=== PATIENT | male | born 1990 | race African-American/Black ===

== ENCOUNTER 2020-02-16 07:08 | Emergency (ER) | payer MEDICAID, SELFPAY ==
[2020-02-16 07:10] VITALS: BP 148/93; PULSE 60; RESP 16; TEMP 36.8; O2SAT 98; BMI 31.0
[2020-02-16 07:36] LABS: Appearance,Urine CLEAR (Clear); Bilirubin,Urine Negative (Negative); Blood, Urine Negative (Negative); Color,Urine YELLOW (Yellow); Glucose,Urine (UA) Negative (Negative); Ketones,Urine Negative (Negative); Leukocyte Esterase,Urine Negative (Negative); Microscopic, Urine URINE MICROSCOPIC (MICROSCOPIC); Nitrate,Urine Negative (Negative); Protein,Urine Negative (Negative); Specific Gravity, Urine 1.025 (1.005-1.030)
--- NOTE | 2020-02-16 07:36 | HMH.EDNVD ---
ED Disposition Clinical Impression: Acute viral syndrome Disposition: Home, Self-Care Condition on Discharge: Good Instructions: DI for Nausea -- Adult Additional Instructions: fluids and see pcp for follow up - check on covid-19 testing today Prescriptions: ondansetron HCL [Zofran 4mg Tab] 4 mg PO Q8H #15 tab Prescription Printed Referrals: PCP,No [Primary Care Provider] - - Critical Care Critical Care Time: No Attestation: On 02/16/20, the high probability of a clinically significant, sudden or life threatening deterioration of the following system(s) required my full and direct attention, intervention and personal management. The time I documented below is in addition to time spent performing reported procedures but includes the following listed in this critical care notation. Medical Decision Making - Medical Records Medical records reviewed: Yes: I reviewed the patient's medical records. - Vinod Inquiry Pt receiving controlled substance: No Vital Signs: 02/16/20 07:10 Temperature 98.3 F Temperature Source Oral Pulse Rate [Left Radial] 60 Respiratory Rate 16 Blood Pressure [Right Arm] 148/93 H Blood Pressure Mean [Right Arm] 111 Blood Pressure Position [Right Arm] Sitting 02 Sat by Pulse Oximetry 98 Oxygen Delivery Method Room Air - Lab Data Lab results reviewed: Yes: I reviewed the patient's lab results. Lab Results 02/16/20 07:28: Urine Color Yellow, Urine Appearance Clear, Urine pH 6.0, Ur Specific [place] 1.025, Urine Protein Negative, Urine Glucose (UA) Negative, Urine Ketones Negative, Urine Blood Negative, Urine Nitrate Negative, Urine Bilirubin Negative, Urine Urobilinogen 1.0, Ur Leukocyte Esterase Negative, Urine RBC None, Urine WBC 3-5, Ur Squamous Epith Cells Occasional, Urine Bacteria Trace, Coarse Granular Casts Occasional 02/16/20 07:28: WBC 9.3, RBC 5.44, Hgb 16.4, Hct 47.3, MCV 87.0, MCH 30.1, MCHC 34.7, RDW 13.5, Plt Count 298, MPV 7.4, Neut % (Auto) 64.4, Lymph % (Auto) 27.7, [place] % (Auto) 5.8, Eos % (Auto) 1.7, Baso % (Auto) 0.5, Neut # (Auto) 6.0, Lymph # (Auto) 2.6, [place] # (Auto) 0.5, Eos # (Auto) 0.2, Baso # (Auto) 0.1 02/16/20 07:28: Sodium 139, Potassium 4.5, Chloride 107, Carbon Dioxide 23, Anion Gap 13.5, BUN 12, Creatinine 0.90, Estimated Creat Clear 166, Estimated GFR 101, Est GFR ( Amer) 122, Glucose 110 H, Calcium 9.2, Total Bilirubin 0.7, AST 36, ALT 63, Alkaline Phosphatase 61, Total Protein 7.4, Albumin 4.2, Globulin 3.2, Albumin/Globulin Ratio 1.3 Result diagrams: 02/16/20 07:28 02/16/20 07:28 Orders (Tests/Meds): ED MEDICATIONS Generic Name Dose Route Start Last Admin Trade Name Freq PRN Reason Stop Dose Admin Sodium Chloride 1,000 mls @ 999 mls/hr 02/16/20 07:30 02/16/20 07:32 Sod Chlor 0.9% 1000ml Bag IV 02/16/20 08:30 999 mls/hr .Q1H1M SAYDA Administration Discontinued Medications Generic Name Dose Route Start Last Admin Trade Name Freq PRN Reason Stop Dose Admin Ondansetron HCl 4 mg 02/16/20 07:29 02/16/20 07:32 Zofran 4mg/2ml Vial IV 02/16/20 07:30 4 mg ONCE ONE Administration ORDERS Category Date Time Status COVID [Coronavirus 19 Swab (OUTPT)] Routine Lab 02/16/20 07:45 Ordered Nausea/Vomiting/Diarrhea HPI - General Chief complaint: Nausea/Vomiting/Diarrhea Stated complaint: nausa negrete Time Seen by Provider: 02/16/20 07:30 Mode of Arrival: Ambulatory Source of Information: Patient, Medical Record Limitations: No Limitations Description of Symptoms (Recalled from ER Triage Doc. by RN): to ed per pvt car with c/o nausea starting yesterday states woke up this am with headache and continues with nausea. pt denies any vomiting, fever, chills, abd pain, diarrhea or sick contacts. - History of Present Illness HPI Narrative: pt with nausea w/o vomiting which started yesterday with no fever and no diarrhea or rash and no jt pain -no tick bite or change in taste or smell- today with rt sided negrete withou
[2020-02-16 07:40] LABS: Basophils # 0.1 K/mm3 (0-0.2); Basophils % 0.5 % (0.1-2.0); Chloride 107 mmol/L (98-107); Eosinophils # 0.2 K/mm3 (0.0-0.4); Eosinophils % 1.7 % (0.1-12.0); Hematocrit 47.3 % (42.0-52.0); Hemoglobin 16.4 g/dL (14.1-18.0); Lymphocytes # 2.6 K/mm3 (0.7-4.5); Lymphocytes % 27.7 % (10-50); Mean Corpuscular HGB Conc 34.7 g/dL (31.8-35.4); Mean Corpuscular Hemoglobin 30.1 pg (27.0-31.2); Mean Platelet Volume 7.4 fl (7.4-10.4); Monocytes # 0.5 K/mm3 (0.1-1.0); Monocytes % 5.8 % (1.7-9.3); Neutrophils % 64.4 % (37.0-80.0); Platelet Count 298 K/mm3 (142-424); Potassium 4.5 mmoL/L (3.5-5.1); Red Blood Count 5.44 M/mm3 (4.60-6.20); Red Cell Distribution Width 13.5 % (11.5-17.5); Sodium 139 mmol/L (136-145); White Blood Count 9.3 K/mm3 (4.8-10.8)
[2020-02-16 07:42] LABS: Alanine Aminotransferase 63 U/L (12-78); Aspartate Amino Transferase 36 U/L (17-59); Blood Urea Nitrogen 12 mg/dl (9-20); Creatinine Clearance Estimated 166 mL/min (50-200); Estimated Glomerular Filt Rate 101 ml/min (>60); GFR (African American) 122 ML/MIN (>60)
[2020-02-16 07:43] LABS: Albumin Level 4.2 g/dl (3.5-5.0); Albumin/Globulin Ratio 1.3 (1.1-1.8); Alkaline Phosphatase 61 U/L (38-126); Anion Gap 13.5 mEq/L (5-15); Bilirubin,Total 0.7 mg/dl (0.2-1.3); Calcium 9.2 mg/dl (8.4-10.2); Carbon Dioxide 23 mmol/L (22.0-30.0); Globulin 3.2 g/dL (1.3-3.2); Glucose 110 mg/dl (74-100); Total Protein,Serum 7.4 g/dl (6.3-8.2)
[2020-02-16 07:52] LABS: Bacteria,Urine Trace /lpf; Coarse Granular Casts,Urine Occasional #/lpf (0); Squamous Epithelial Cell,Urine Occasional #/hpf (0-5)
[2020-02-16 08:15] VITALS: BP 140/85; PULSE 58; RESP 15; TEMP 36.8; O2SAT 98
== END 2020-02-16 08:16 | disposition home or self-care (01) ==
PROVIDERS: Emergency Provider Emergency Medicine
DX: B34.9 Viral infection, unspecified (principal); Z20.828 Contact with and (suspected) exposure to other viral communicable diseases; F17.290 Nicotine dependence, other tobacco product, uncomplicated
CPT/HCPCS: 80053; 81001; 85025; 96365; 96375; 99282; J2405; U0003

== ENCOUNTER → 2020-09-05 13:29 | Outpatient (CLI) | payer OTHER, SELFPAY | PROVIDERS: Visit Provider Nurse Practitioner Family | DX: Z20.822 Contact with and (suspected) exposure to COVID-19 (principal) | CPT/HCPCS: U0003 ==

== ENCOUNTER → 2021-07-04 09:36 | Outpatient (CLI) | payer OTHER, SELFPAY | PROVIDERS: Visit Provider Nurse Practitioner | DX: Z20.822 Contact with and (suspected) exposure to COVID-19 (principal) | CPT/HCPCS: C9803; U0003; U0005 ==

== ENCOUNTER 2022-06-25 00:53 | Emergency (ER) | payer SELFPAY ==
[2022-06-25 00:54] VITALS: BP 114/78; PULSE 116; RESP 16; TEMP 39.1; O2SAT 98; BMI 34.1
[2022-06-25 01:34] LABS: Influenza A, PCR Not Detected (NotDetected); Influenza B, PCR Not Detected (NotDetected)
--- NOTE | 2022-06-25 01:42 | PC.NURSE ---
Pt provided with pillow and water
[2022-06-25 01:43] LABS: Strep Scrn Group A (Rapid) Negative (Negative)
[2022-06-25 02:04] LABS: Coronavirus 19, PCR Detected (NotDetected)
--- NOTE | 2022-06-25 02:40 | HMH.EDFEV ---
Discharge Plan Disposition Patient Disposition: Home, Self-Care Chief Complaint: Fever Prescriptions Prescriptions: No Action No Known Home Medications benzonatate 200 mg capsule 200 mg PO TID PRN (Reason: cough) 7 Days Qty: 21 0RF albuterol sulfate 90 mcg/actuation HFA aerosol inhaler 2 puff INHALATION Q6H PRN (Reason: wheezing) 30 Days Qty: 6.7 0RF Rx Instructions: administer with spacer Referrals Follow up/Referrals: Provider,Referral, MD [Primary Care Provider] - See instructions Clinical Impressions Clinical Impression: COVID-19 Instructions Patient Instructions: DI for Fever (Symptom) -- Adult, DI for COVID-19 (Suspected or Confirmed ) Discharge ED Provider: Parrish Ly Fever HPI General Chief Complaint: Fever Stated Complaint: body aches, chills, cough, vomiting Time Seen by Provider: 06/25/22 02:00 Mode of Arrival: Ambulatory Source of Information: Patient and Medical Record Limitations: No Limitations Description of Symptoms (Recalled from ER Triage Doc. by RN): pt c/o fever body aches and one episode of violent chooking (vomiting ) History of Present Illness HPI Narrative: pt with fever and cough and aching over the last 2 days - presents for jorge [employer] complaint: fever and malaise Onset (ago): day(s) Associated symptoms: denies other symptoms Related Data Home Medications Medication Instructions Recorded Confirmed No Known Home Medications 09/05/20 09/05/20 Previous Rx's Medication Instructions Recorded albuterol sulfate 90 mcg/actuation 2 puff inhalation Q6H PRN wheezing 09/05/20 aerosol inhaler 30 days #6.7 grams benzonatate 200 mg capsule 200 mg PO TID PRN cough 7 days #21 09/05/20 caps Allergies Allergy/AdvReac Type Severity Reaction Status Date / Time No Known Allergies Allergy Verified 09/05/20 12:52 [facility] Disclaimer: The information contained in this section may have been updated after the patient was seen, as this information can be updated by other users. Social History Smoking Status: Never smoker alcohol intake: never substance use type: denies use current occupational status: employed Travel in the last 8 weeks: None household members: other housing: other ROS Obtained: Yes All systems reviewed & no additional complaints except as documented Physical Exam General General appearance: alert Head Head exam: normocephalic Eye Eye exam: Present PERRL and EOMI; Absent scleral icterus ENT ENT exam: Present normal oropharynx and mucous membranes moist Neck Neck exam: Present trachea midline Respiratory Respiratory exam: Present normal lung sounds bilaterally; Absent respiratory distress Cardiovascular Cardiovascular exam: Present regular rate Abdominal Exam Abdominal exam: Present soft Extremities Exam Extremities exam: Present full ROM Neurological Exam Neurological exam: Present alert, oriented X3 and CN II-XII intact; Absent motor sensory deficit Psychiatric Psychiatric exam: Present normal affect Skin Skin exam: Absent rash Medical Decision Making Medical Records Medical records reviewed: Yes I reviewed the patient's medical records. Vinod Inquiry Pt receiving controlled substance: No Vital Signs: 06/25/22 00:54 Temperature 102.4 F H Temperature Source Oral Pulse Rate [Left Radial] 116 H Respiratory Rate 16 Blood Pressure [Right Arm] 114/78 Blood Pressure Mean [Right Arm] 90 02 Sat by Pulse Oximetry 98 Oxygen Delivery Method Room Air Lab Data Lab results reviewed: Yes I reviewed the patient's lab results. Lab Results 06/25/22 01:13: Group A Strep Rapid Negative 06/25/22 01:13: SARS-CoV-2 (PCR) Detected A, Influenza A Untype (PCR) Not detected, Influenza Type B (PCR) Not detected Orders (Tests/Meds): ED MEDICATIONS Discontinued Medications Generic Name Dose Route Start Last Admin Trade Name Skylerq PRN Reason Stop Dose Admin Acetaminophen 1,000 mg
[2022-06-25 02:52] VITALS: BP 110/73; PULSE 90; RESP 16; TEMP 37.2; O2SAT 98
== END 2022-06-25 02:54 | disposition home or self-care (01) ==
PROVIDERS: Emergency Provider Emergency Medicine
DX: U07.1 COVID-19 (principal); R50.9 Fever, unspecified; M79.10 Myalgia, unspecified site; R05.9 Cough, unspecified; R11.10 Vomiting, unspecified; R53.81 Other malaise; Z79.51 Long term (current) use of inhaled steroids
CPT/HCPCS: 87430; 99283; C9803; U0003; U0005

== ENCOUNTER 2022-08-09 09:05 | Emergency (ER) | payer SELFPAY ==
[2022-08-09 09:26] VITALS: BP 134/86; PULSE 91; RESP 20; O2SAT 98; BMI 31.0
[2022-08-09 09:40] VITALS: BP 134/86; PULSE 91; RESP 20; TEMP 37.1; O2SAT 98; BMI 31.1
--- NOTE | 2022-08-09 09:43 | EXP.UTC ---
Discharge Plan Disposition Patient Disposition: Home, Self-Care Condition: Good Prescriptions Prescriptions: New ondansetron 4 mg tablet,disintegrating 4 mg PO Q8H PRN (Reason: nausea and vomiting) Qty: 14 0RF No Action benzonatate 200 mg capsule 200 mg PO TID PRN (Reason: cough) 7 Days Qty: 21 0RF albuterol sulfate 90 mcg/actuation HFA aerosol inhaler 2 puff INHALATION Q6H PRN (Reason: wheezing) 30 Days Qty: 6.7 0RF Rx Instructions: administer with spacer Referrals Follow up/Referrals: Provider,Referral, MD [Primary Care Provider] - See instructions Activity Restrictions/Add. Instructions Additional Instructions/Restrictions: Monitor temperature. Seek treatment if fever develops. Follow-up immediately if new or worse symptoms worsen or no noticeable improvement over 48 hours. Increase fluids such as water, Gatorade, Powerade, juice or Pedialyte with limited formula/dietary in children No food is okay as long as you are drinking. Once ready to eat start bland such as bananas, rice, applesauce, toast. Contagious until no diarrhea, vomiting, fever times 48 hours without medication Avoid antidiarrheals unless told otherwise. Best to let the virus run its course. Follow-up immediately for new or worsening symptoms or no noticeable improvement over the next 48 hours. Clinical Impressions Clinical Impression: Nausea & vomiting, Diarrhea Instructions Patient Instructions: Nausea and Vomiting-Adult Discharge [place] [facility] [place] General Stated complaint: Vomiting Diarrhea Mode of Arrival: Ambulatory Source of Information: Patient Limitations: No Limitations Time Seen by Provider: 08/09/22 09:44 Description of Symptoms (Recalled from Triage Doc. by RN): pt c/o nausea, vomiting and diarrhea. pt states he has had some mild body aches associated. History of Present Illness Provider Complaint: 31 yr old male presents for nausea/vomiting and diarrhea for 6 days. pt states vomiting x3 today with diarrhea. pt states he was able to eat and drink on and felt better. Pt states on thursday he also was able to eat and drink but woke up in the night and the vomiting and diarrhea had returned. pt states he thinks he is dehydrated Related Data Previous Rx's Medication Instructions Recorded albuterol sulfate 90 mcg/actuation 2 puff inhalation Q6H PRN wheezing 09/05/20 aerosol inhaler 30 days #6.7 grams benzonatate 200 mg capsule 200 mg PO TID PRN cough 7 days #21 09/05/20 caps ondansetron 4 mg disintegrating 4 mg PO Q8H PRN nausea and 08/09/22 tablet vomiting #14 tabs Allergies Allergy/AdvReac Type Severity Reaction Status Date / Time No Known Allergies Allergy Verified 09/05/20 12:52 [facility] Disclaimer: The information contained in this section may have been updated after the patient was seen, as this information can be updated by other users. Medical History (Updated 08/09/22 @ 10:52 by Divina Jay ([facility]), [employer]) No significant past medical history Social History , [employer]) Smoking Status: Never smoker alcohol intake: never substance use type: denies use current occupational status: employed Travel in the last 8 weeks: None household members: other housing: other ROS Obtained: Yes All systems reviewed & no additional complaints except as documented Constitutional Constitutional: Reports system reviewed and no additional complaints, except as documented, Reports as per HPI and Reports fatigue Eyes Eyes: Reports system reviewed and no additional complaints, except as documented ENT Ears, Nose, Mouth, and Throat: Reports system reviewed and no additional complaints, except as documented Cardiovascular Cardiovascular: Reports system reviewed and no additional complaints, except as documented Gastrointestinal Gastrointestingal: Reports system reviewed and no additional complaints, except as document
[2022-08-09 10:15] LABS: MANUAL DIFFERENTIAL MANUAL DIFFERENTIAL (MANUAL DIFF)
[2022-08-09 10:19] LABS: Basophils # 0.1 K/mm3 (0-0.2); Basophils % 0.7 % (0.1-2.0); Eosinophils # 0.1 K/mm3 (0.0-0.4); Eosinophils % 1.2 % (0.1-12.0); Hematocrit 45.7 % (42.0-52.0); Hemoglobin 15.4 g/dL (14.1-18.0); Lymphocytes # 1.4 K/mm3 (0.7-4.5); Lymphocytes % 14.9 % (10-50); Mean Corpuscular HGB Conc 33.6 g/dL (31.8-35.4); Mean Corpuscular Hemoglobin 29.6 pg (27.0-31.2); Mean Platelet Volume 7.9 fl (7.4-10.4); Monocytes # 0.5 K/mm3 (0.1-1.0); Monocytes % 5.6 % (1.7-9.3); Neutrophils # 7.1 K/mm3 (1.8-7.8); Neutrophils % 77.6 % (37.0-80.0); Platelet Count 354 K/mm3 (142-424); Red Blood Count 5.19 M/mm3 (4.60-6.20); Red Cell Distribution Width 13.2 % (11.5-17.5); White Blood Count 9.2 K/mm3 (4.8-10.8)
[2022-08-09 10:20] LABS: Chloride 108 mmol/L (98-107); Sodium 141 mmol/L (136-145)
[2022-08-09 10:21] LABS: Potassium 4.1 mmoL/L (3.5-5.1)
[2022-08-09 10:23] LABS: Alanine Aminotransferase 55 U/L (12-78); Alkaline Phosphatase 53 U/L (38-126); Anion Gap 8.1 mEq/L (5-15); Aspartate Amino Transferase 39 U/L (17-59); Bilirubin,Total 0.7 mg/dl (0.2-1.3); Blood Urea Nitrogen 11 mg/dl (9-20); Carbon Dioxide 29 mmol/L (22.0-30.0); Creatinine Clearance Estimated 163 mL/min (50-200); Estimated Glomerular Filt Rate 100 ml/min (>60); GFR (African American) 121 ML/MIN (>60)
[2022-08-09 10:24] LABS: Albumin Level 4.1 g/dl (3.5-5.0); Albumin/Globulin Ratio 1.3 (1.1-1.8); Calcium 8.5 mg/dl (8.4-10.2); Globulin 3.2 g/dL (1.3-3.2); Glucose 111 mg/dl (74-100); Total Protein,Serum 7.3 g/dl (6.3-8.2)
[2022-08-09 10:48] VITALS: BP 134/86; PULSE 91; RESP 20; TEMP 37.1; O2SAT 98
[2022-08-09 10:58] LABS: Lymphocytes % 17 % (10-50); Monocytes % 4 % (2-9); Neutrophils % 79 % (42-76); Platelet Estimate Normal; RBC Morphology Normal; Total Cells Counted 100
== END 2022-08-09 11:07 | disposition home or self-care (01) ==
LOC: ER 09:27 → UTC 09:27
PROVIDERS: Emergency Provider Nurse Practitioner Family
DX: R11.2 Nausea with vomiting, unspecified (principal); R19.7 Diarrhea, unspecified
CPT/HCPCS: 80053; 85007; 85014; 85018; 85048; 85049; 96360; 96374; 99213; C9803; G0463; J2405; U0003; U0005